=== PATIENT | male | born 1970 | race Two or more races ===

== ENCOUNTER 2018-08-29 23:13 | Emergency (ER) | payer SELFPAY ==
[~2018-08-29] VITALS: Ht 167.6 cm; Wt 67.3 kg
[2018-08-30 00:01] VITALS: BP 132/87
== END 2018-08-30 00:33 | disposition left against medical advice (07) ==
LOC: EMS 23:15
DX: K08.89 Other specified disorders of teeth and supporting structures (principal)
CPT/HCPCS: 99281